=== PATIENT | female | born 1945 | race American Indian/Alaskan Native ===

== ENCOUNTER 2017-06-29 11:35 | Day surgery (SDC) | payer MEDICARE ==
[~2017-06-29 11:35] MED LIST: IOPIDINE ONE; MYDRIACYL ONE
[2017-06-29] MEDS ORDERED: NEOFRIN ONE (11:43)
[2017-06-29] MEDS ORDERED: IOPIDINE OD ONE (12:00)
[2017-06-29] MEDS ORDERED: PHENYLEPHRINE HCL OD ONE (12:00)
[2017-06-29] MEDS ORDERED: MYDRIACYL OD ONE (12:00)
[2017-06-29] MEDS ORDERED: AK-Dilate ONE (12:11)
[2017-06-29 12:42] VITALS: BP 134/53
== END 2017-06-29 14:21 | disposition home or self-care (01) ==
LOC: OR 11:35
PROVIDERS: ATTEND Specialist
DX: H26.491 Other secondary cataract, right eye (principal); Z79.899 Other long term (current) drug therapy
CPT/HCPCS: 82962

== ENCOUNTER 2017-07-06 11:05 | Day surgery (SDC) | payer MEDICARE ==
[2017-07-06] MEDS ORDERED: MYDRIACYL ONE (12:18)
[2017-07-06] MEDS ORDERED: IOPIDINE ONE (12:18)
[2017-07-06] MEDS ORDERED: NEOFRIN ONE (12:19)
[2017-07-06] MEDS ORDERED: IOPIDINE OS ONE (12:24)
[2017-07-06] MEDS ORDERED: NEOFRIN OS ONE (12:24)
[2017-07-06] MEDS ORDERED: MYDRIACYL OS ONE (12:24)
[2017-07-06 12:40] VITALS: BP 130/60
== END 2017-07-06 11:06 | disposition home or self-care (01) ==
LOC: OR 11:05
PROVIDERS: ATTEND Specialist
DX: H26.492 Other secondary cataract, left eye (principal); E11.9 Type 2 diabetes mellitus without complications; I10 Essential (primary) hypertension; E78.00 Pure hypercholesterolemia, unspecified; M17.0 Bilateral primary osteoarthritis of knee; Z90.710 Acquired absence of both cervix and uterus; Z98.42 Cataract extraction status, left eye; Z98.41 Cataract extraction status, right eye
CPT/HCPCS: 82962